=== PATIENT | male | born 1985 | race Caucasian/White ===

== ENCOUNTER 2016-11-28 08:31 | Emergency (ER) | payer OTHER ==
[~2016-11-28] VITALS: Ht 182.9 cm; Wt 81.6 kg
[2016-11-28 08:56] VITALS: BP 161/99
--- NOTE | 2016-11-28 09:22 | NUR ---
PT AMBULATED TO BED 7 AT THIS TIME.
--- NOTE | 2016-11-28 09:30 | NUR ---
DRY COUGH WITH RUNNY NOSE X3 DAYS; DENIES N/V/D; SKIN IS PINK/WARM/DRY; AAOX4 WITH EVEN AND STEADY GAIT; LUNGS CLEAR BL; HR EVEN AND REGULAR; PT DENIES ANY FEVER, CP, SOB, OR COUGH AT THIS TIME; PATIENT STATES PAIN OF 0/10 AT THIS TIME; VSS; PATIENT POSITIONED FOR COMFORT; HOB ELEVATED; BEDRAILS UP X2; BED DOWN. ER MD MADE AWARE OF PT STATUS.
--- NOTE | 2016-11-28 10:12 | NUR ---
[facility] PT BEING ASSESS BY DR BURGOS AT BEDSIDE
[2016-11-28 10:25] VITALS: BP 155/92
--- NOTE | 2016-11-28 10:25 | NUR ---
Patient discharged with V/s stable. Written and verbal after care instructions given and explained. Patient alert, oriented and verbalized understanding of instructions. Ambulatory with steady gait. All questions addressed prior to discharge. ID band removed. Patient advised to follow up with PMD. Rx of DEXTROMETHORPHAN, NAPROSYN given. Patient educated on indication of medication including possible reaction and side effects. Opportunity to ask questions provided and answered.
== END 2016-11-28 10:25 | disposition home or self-care (01) ==
LOC: MED 08:31
DX: B34.9 Viral infection, unspecified (principal); R03.0 Elevated blood-pressure reading, without diagnosis of hypertension; Z88.0 Allergy status to penicillin